=== PATIENT | male | born 1965 | race Caucasian/White ===

== ENCOUNTER 2024-05-23 09:01 | Emergency (ER) | payer OTHER, SELFPAY ==
[2024-05-23 09:14] VITALS: BP 154/71; PULSE 79; RESP 22; TEMP 36.6; O2SAT 100; BMI 45.8
--- NOTE | 2024-05-23 09:19 | ED_ITS ---
HPI - General Adult General Chief complaint: Shortness of Breath/Dyspnea Stated complaint: Broken Trach Time Seen by Provider: 05/23/24 09:13 History of Present Illness HPI narrative: Patient is a 58-year-old male has a history of esophageal cancer and severe GUADALUPE. He has a trach and has since 2017. Reports that his cuff around the trach broke. He has a 4 cuffless trach abuse currently holding it in place. He reports that the trach was left not for any cancer or obstruction but for his severe sleep apnea. [facility] originally put it in, he has not followed up with anyone in a long time Related Data Allergies Allergy/AdvReac Type Severity Reaction Status Date / Time No Known Allergies Allergy Uncoded 11/12/17 12:44 Exam Initial Vital Signs Initial Vital Signs: Vital Signs Temperature 97.8 F 05/23/24 09:14 Pulse Rate 79 05/23/24 09:14 Respiratory Rate 22 05/23/24 09:14 Blood Pressure 154/71 H 05/23/24 09:14 Pulse Oximetry 100 05/23/24 09:14 Oxygen Delivery Method Room Air 05/23/24 09:14 GENERAL: 58 year old patient appears stated age. Well-developed patient, in mild distress. HEAD: Atraumatic. Normocephalic. ENT: Nose without bleeding, purulent drainage. Throat without erythema, tonsillar hypertrophy or exudate. Airway patent. NECK: trach placed speaking clearly broken cuff CARDIOVASCULAR: Regular rate and rhythm without murmurs, gallops, or rubs. RESPIRATORY: Clear to auscultation. Breath sounds equal bilaterally. No wheezes, rales, or rhonchi. EXTREMITIES: No edema or joint tenderness. NEURO: AOx3. SKIN: No rash or erythema of visible areas Course Vital Signs Vital signs: Vital Signs - 8 hr 05/23/24 09:14 05/23/24 09:45 05/23/24 09:52 Temperature 97.8 F Pulse Rate 79 59 L 62 Respiratory Rate 22 18 16 Blood Pressure 154/71 H 133/79 133/79 Pulse Oximetry 100 100 99 Oxygen Delivery Method Room Air Room Air Room Air Medical Decision Making MDM Narrative Medical decision making narrative: 58-year-old male looking for a replacement for his 4 cuffless trach. Unfortunately we do not have of the cuffless trach. We replaced it with fenestrated 4. Was slightly traumatic there was some bleeding. Initially when 1st replaced patient felt like he could not breathe needed to be repositioned and then there was definitely air and confirmation of placement. He does not feel like he is able to talk quite like he used to feel like his voice is a little bit weaker. I spoke with on-call ICU physician who states that with likely in place and doing fine. The fenestrated 1 is different than the cuffless and it feels different to him but work just the same. Dr. Tyler, ENT on-call I asked to see if they had a 4 cuffless trach available in the office if patient were to go tomorrow to get it exchanged again. He says unfortunately they do not keep trach in stock, and unlikely to be kept in the hospital as well. He recommended going back to [facility]. He also reports yet patient will feel different with the fenestrated 1. Thought he might and liking it better. Discussion with patient he feels comfortable going home pain is subsided bleeding subsided air he is coming out he is able to clear it. He is able to speak voice is not as strong but very clearly in place. Discharge Plan Departure Patient Disposition: Home Clinical Impression: Tracheostomy complication Activity Restrictions/Additional Instructions: *You have been diagnosed with trach replacement *What to do: You have a fenestrated size 4 trach Recommend that you call [facility] in [facility] and possibly [facility] if you want a different device *Continue to take medications as directed *Follow up with your primary care provider in 2-3 days or call [phone] *Return to ER if you should have increased bleeding difficulty breathing difficulty speaking any new, worsening or concerning symptoms Referrals: David Villavicencio MD [Primary Care Provider] - Stand Alone Forms: Patient Portal/API
[2024-05-23 09:45] VITALS: BP 133/79; PULSE 59; RESP 18; O2SAT 100
[2024-05-23 09:52] VITALS: BP 133/79; PULSE 62; RESP 16; O2SAT 99
--- NOTE | 2024-05-23 09:58 | PC.NURSE ---
Pt arrived with a broken Shiley cuffless non fenestrated trach. 4.0., Replaced with a Shiley 4.0 fenestrated cuffed trach. This was the only one available at the hospital. Cuff was cut off after placement. new trach ties placed. tolerated well. some minor bleeding with trach placement. pt took a few minutes to get use to the fenestrated trach, talking in full sentences. maintaining airway. Spo2 100 percent . Rt at bedside to replace trach. DR. bey at bedside.
== END 2024-05-23 09:52 | disposition home or self-care (01) ==
PROVIDERS: Emergency Provider Emergency Medicine; PCP Internal Medicine
DX: J95.00 Unspecified tracheostomy complication (principal)
CPT/HCPCS: 94799; 99281; 99283